=== PATIENT | female | born 1940 | race Caucasian/White ===

== ENCOUNTER → 2022-05-28 | Outpatient (CLI) | payer OTHER ==
[2022-05-28 16:20] LABS: Basophils # (auto) 0.1 10 ^3/uL (0-0.2); Basophils % (auto) 0.8 % (0.0-2.0); Eosinophils # (auto) 0.5 10 ^3/uL (0-0.8); Eosinophils % (auto) 4.9 % (0.0-7.0); Hemoglobin 14.5 g/dL (12.2-16.2); Lymphocytes # (auto) 2.2 10 ^3/uL (0.4-5.4); Lymphocytes % (auto) 20.7 % (10.0-50.0); Mean Corpuscular Hemoglobin 30.8 pg (28.0-32.0); Mean Corpuscular Hgb Conc. 33.9 g/dL (32.0-36.0); Monocytes # (auto) 1.1 10 ^3/uL (0-1.3); Monocytes % (auto) 10.4 % (0.0-12.0); Neutrophils # (auto) 6.8 10 ^3/uL (1.6-8.6); Neutrophils % (auto) 63.2 % (37.0-80.0); Red Blood Cells 4.72 10^6/uL (4.0-5.20); Red Cell Distribution Width 13.4 % (11.8-14.3); White Blood Cell 10.7 10^3/uL (4.4-10.8)
[2022-05-28 16:51] LABS: Albumin 3.5 g/dL (3.4-5.0); BUN/Creatinine Ratio 21.2; Calcium 9.1 mg/dL (8.5-10.1); Potassium 4.4 mmol/L (3.5-5.1); Total Protein 7.5 g/dL (6.4-8.2)
[2022-05-28 16:55] LABS: Bilirubin, Total 0.4 mg/dL (0.2-1.0)
== END | disposition home or self-care (01) ==
LOC: LAB 15:27
PROVIDERS: ATTEND Internal Medicine Hematology & Oncology
DX: H01.131 Eczematous dermatitis of right upper eyelid (principal); I10 Essential (primary) hypertension; R80.9 Proteinuria, unspecified; M47.818 Spondylosis without myelopathy or radiculopathy, sacral and sacrococcygeal region
CPT/HCPCS: 36415; 80053; 80061; 82043; 83036; 84439; 84443; 85025

== ENCOUNTER → 2023-01-07 | Outpatient (CLI) | payer OTHER ==
[2023-01-07 12:06] LABS: Basophils # (auto) 0.1 10 ^3/uL (0-0.2); Basophils % (auto) 0.9 % (0.0-2.0); Eosinophils # (auto) 0.5 10 ^3/uL (0-0.8); Eosinophils % (auto) 5.9 % (0.0-7.0); Lymphocytes # (auto) 1.8 10 ^3/uL (0.4-5.4); Lymphocytes % (auto) 20.9 % (10.0-50.0); Mean Corpuscular Hemoglobin 30.4 pg (28.0-32.0); Mean Corpuscular Hgb Conc. 33.3 g/dL (32.0-36.0); Mean Corpuscular Volume 91.3 fL (80.0-100.0); Monocytes # (auto) 0.8 10 ^3/uL (0-1.3); Monocytes % (auto) 9.3 % (0.0-12.0); Neutrophils # (auto) 5.4 10 ^3/uL (1.6-8.6); Red Cell Distribution Width 13.5 % (11.8-14.3); White Blood Cell 8.6 10^3/uL (4.4-10.8)
[2023-01-07 13:37] LABS: Triglycerides 135 mg/dL (< 150)
[2023-01-07 13:38] LABS: Alanine Aminotransferase 17 U/L (7-40); Albumin 4.3 g/dL (3.2-4.8); Alkaline Phosphatase 78 U/L (46-116); Anion Gap 7 (5-15); Aspartate Aminotransferase 15 U/L (13-40); BUN/Creatinine Ratio 14.3 (10.0-20.0); Bilirubin, Direct 0.1 mg/dL (<0.3); Bilirubin, Total 0.4 mg/dL (0.2-1.0); Blood Urea Nitrogen 14 mg/dL (9-23); Calcium 9.4 mg/dL (8.5-10.1); Carbon Dioxide 29 mmol/L (20-30); Chloride 104 mmol/L (98-107); Cholesterol 136 mg/dL (< 200); Glucose 102 mg/dL (74-106); HDL Cholesterol 59 mg/dL (40-59); LDL Cholesterol 60 mg/dL (< 100); Potassium 4.3 mmol/L (3.5-5.1); Sodium 140 mmol/L (136-145); Total Protein 7.4 g/dL (5.7-8.2)
== END | disposition home or self-care (01) ==
LOC: LAB 11:09
PROVIDERS: ATTEND Internal Medicine Hematology & Oncology
DX: I12.9 Hypertensive chronic kidney disease with stage 1 through stage 4 chronic kidney disease, or unspecified chronic kidney disease (principal); E11.22 Type 2 diabetes mellitus with diabetic chronic kidney disease; N18.31 Chronic kidney disease, stage 3a
CPT/HCPCS: 36415; 80048; 80061; 80076; 83036; 84436; 84439; 84443; 85025

== ENCOUNTER 2023-05-22 09:09 | Emergency (ER) | payer OTHER ==
[~2023-05-22] VITALS: Ht 162.6 cm; Wt 185.0 kg
[2023-05-22 11:16] VITALS: BP 167/107; PULSE 88; RESP 16; TEMP 98.5; O2SAT 96
[2023-05-22] MEDS: ACETAMINOPHEN/CODEINE#3 (300/30mg) TAB PO ONE (12:15)
[2023-05-22 16:15] LABS: Urine Bacteria NONE SEEN /hpf (None Seen); Urine Blood TRACE /uL (Negative); Urine Clarity Clear (Clear); Urine Color Yellow (Yellow); Urine Protein, UAD 3+ (Negative); Urine Specific Gravity 1.016 (1.001-1.035); Urine Urobilinogen Normal (Negative); Urine WBC 2 /hpf (0 - 5)
== END 2023-05-22 18:20 | disposition home or self-care (01) ==
LOC: EDBD 09:09 → ER 09:09
DX: S82.832A Other fracture of upper and lower end of left fibula, initial encounter for closed fracture (principal); I10 Essential (primary) hypertension; Z98.890 Other specified postprocedural states; Z79.899 Other long term (current) drug therapy; W18.39XA Other fall on same level, initial encounter; Y93.89 Activity, other specified; Y92.89 Other specified places as the place of occurrence of the external cause; Y99.8 Other external cause status
CPT/HCPCS: 29515; 73562; 73600; 81001

== ENCOUNTER 2023-05-29 23:21 | Inpatient (IN) | payer OTHER ==
[~2023-05-29] VITALS: Ht 162.6 cm; Wt 83.6 kg
[2023-05-30] VITALS (11 sets, daily range): BP systolic 142–170; BP diastolic 47–85; PULSE 76–83; RESP 16–18; TEMP 98–98.7; O2SAT 82–95
[2023-05-30] MEDS: MORPHINE SULFATE 4 MG/ML SYR/VIAL IV ONE
[2023-05-30 00:26] LABS: Chloride 107 mmol/L (98-107); Potassium 3.9 mmol/L (3.5-5.1); Sodium 139 mmol/L (136-145)
[2023-05-30 00:27] LABS: Anion Gap 7 (5-15); Carbon Dioxide 25 mmol/L (20-30)
[2023-05-30 00:28] LABS: Calcium 9.3 mg/dL (8.7-10.4)
[2023-05-30 00:31] LABS: Basophils # (auto) 0.1 10 ^3/uL (0-0.2); Eosinophils # (auto) 0.5 10 ^3/uL (0-0.8); Eosinophils % (auto) 5.1 % (0.0-7.0); Hemoglobin 13.8 g/dL (12.2-16.2); Lymphocytes # (auto) 1.6 10 ^3/uL (0.4-5.4); Lymphocytes % (auto) 15.7 % (10.0-50.0); Mean Corpuscular Hemoglobin 29.9 pg (28.0-32.0); Mean Corpuscular Hgb Conc. 33.6 g/dL (32.0-36.0); Monocytes # (auto) 1.1 10 ^3/uL (0-1.3); Monocytes % (auto) 11.1 % (0.0-12.0); Neutrophils # (auto) 6.7 10 ^3/uL (1.6-8.6); Neutrophils % (auto) 67.1 % (37.0-80.0); Nucleated Red Blood Cells % 0.1 %; Red Cell Distribution Width 13.4 % (11.8-14.3)
[2023-05-30 00:32] LABS: BUN/Creatinine Ratio 21.1 (10.0-20.0); Blood Urea Nitrogen 20 mg/dL (9-23); Glucose 138 mg/dL (74-106)
[2023-05-30] MEDS ORDERED: ONDANSETRON HCL 4 MG/2 ML VIAL IV PRN (02:30)
[2023-05-30] MEDS ORDERED: ACETAMINOPHEN 325 MG TAB PO PRN (02:30)
[2023-05-30] MEDS ORDERED: MORPHINE SULFATE INJ 2 MG/ml SYRG IV PRN (02:30)
[2023-05-30] MEDS: HYDROcodone-ACET 5/325MG TAB PO PRN (03:07)
[2023-05-30] MEDS ORDERED: TRAZ150T84 PO (06:39)
[2023-05-30] MEDS ORDERED: DOCU-265 PO (06:51)
[2023-05-30] MEDS ORDERED: FLUO0.05 TOP (06:51)
[2023-05-30] MEDS ORDERED: LISI40TA16 PO (06:51)
[2023-05-30] MEDS ORDERED: AMLO1TAB22 PO ×2 (06:51→09:40)
[2023-05-30 08:52] LABS: INR 1.01 (0.9-1.15); Partial Thromboplastin Time 32.2 SEC (24.5-34.5); Prothrombin Time 10.6 sec (9.3-11.8)
[2023-05-30] MEDS: DOCUSATE SOD 100 MG CAP PO SCH ×2 (09:26→21:39)
[2023-05-30] MEDS: LISINOPRIL 20 MG TAB PO SCH (09:27)
[2023-05-30] MEDS: ENOXAPARIN SOD 40 MG/0.4 ML SYRINGE SC SCH (09:29)
[2023-05-30 09:31] LABS: Urine Bacteria NONE SEEN /hpf (None Seen); Urine Blood TRACE /uL (Negative); Urine Clarity Clear (Clear); Urine Protein, UAD 2+ (Negative); Urine Specific Gravity 1.012 (1.001-1.035); Urine Urobilinogen Normal (Negative); Urine WBC 13 /hpf (0 - 5); Urine pH 5.5 (5.0-8.0)
[2023-05-30 09:32] LABS: Urine Color STRAW (Yellow)
[2023-05-30] MEDS ORDERED: OXYB5SOL PO (09:40)
[2023-05-30] MEDS: LACTULOSE 20Gm/30ML SOLN PO ONE (14:26)
[2023-05-30] MEDS: ACETAMINOPHEN/CODEINE#3 (300/30mg) TAB PO ONE ×2 (14:28→21:44)
[2023-05-30] MEDS: ENOXAPARIN SOD 30 MG/0.3 ML SYRINGE SC ONE (21:15)
[2023-05-30] MEDS: DOCUSATE SOD 100 MG CAP PO ONE (21:39)
[2023-05-30] MEDS: PRAVASTATIN SODIUM 20 MG TAB PO SCH (21:44)
[2023-05-30] MEDS: traZODone HCL 50 MG TAB PO ONE (23:00)
[2023-05-31] MEDS: ACETAMINOPHEN/CODEINE#3 (300/30mg) TAB PO PRN (04:59)
[2023-05-31 05:00] VITALS: BP 161/56; PULSE 76; RESP 18; TEMP 98.1; O2SAT 94
[2023-05-31] MEDS ORDERED: hydrALAZINE HCL 20 MG/ML VL IV PRN (06:15)
[2023-05-31 07:15] LABS: Basophils # (auto) 0.1 10 ^3/uL (0-0.2); Basophils % (auto) 0.8 % (0.0-2.0); Eosinophils # (auto) 0.5 10 ^3/uL (0-0.8); Eosinophils % (auto) 5.9 % (0.0-7.0); Hematocrit 41.7 % (36.0-46.0); Hemoglobin 13.9 g/dL (12.2-16.2); Lymphocytes # (auto) 1.3 10 ^3/uL (0.4-5.4); Lymphocytes % (auto) 14.9 % (10.0-50.0); Mean Corpuscular Hemoglobin 29.9 pg (28.0-32.0); Mean Corpuscular Hgb Conc. 33.3 g/dL (32.0-36.0); Mean Corpuscular Volume 89.8 fL (80.0-100.0); Monocytes % (auto) 11.5 % (0.0-12.0); Neutrophils # (auto) 5.9 10 ^3/uL (1.6-8.6); Neutrophils % (auto) 66.9 % (37.0-80.0); Nucleated Red Blood Cells % 0.1 %; Red Blood Cells 4.64 10^6/uL (4.0-5.20); Red Cell Distribution Width 13.5 % (11.8-14.3); White Blood Cell 8.9 10^3/uL (4.4-10.8)
[2023-05-31 07:24] LABS: Anion Gap 7 (5-15); Carbon Dioxide 25 mmol/L (20-30); Chloride 106 mmol/L (98-107); Potassium 3.9 mmol/L (3.5-5.1); Sodium 138 mmol/L (136-145)
[2023-05-31 07:25] LABS: Calcium 9.5 mg/dL (8.7-10.4)
[2023-05-31 07:30] LABS: BUN/Creatinine Ratio 16.3 (10.0-20.0); Blood Urea Nitrogen 15 mg/dL (9-23); Glucose 98 mg/dL (74-106)
[2023-05-31 08:00] VITALS: PULSE 68; O2SAT 95
[2023-05-31 08:54] VITALS: BP 112/58; PULSE 74; RESP 17; TEMP 98.1; O2SAT 95
[2023-05-31 09:10] VITALS: BP 135/73; PULSE 112; RESP 58; TEMP 36.7; O2SAT 95
[2023-05-31] MEDS: amLODIPine BESYLATE 5 MG TAB PO SCH (09:45)
[2023-05-31] MEDS: DOCUSATE SOD 100 MG CAP PO ONE (09:45)
[2023-05-31] MEDS: OXYBUTYNIN CHL 5 MG TAB PO SCH (09:47)
[2023-05-31] MEDS: ENOXAPARIN SOD 40 MG/0.4 ML SYRINGE SC SCH (10:00)
[2023-05-31] MEDS: LISINOPRIL 20 MG TAB PO SCH (10:00)
[2023-05-31] MEDS ORDERED: traZODone HCL 50 MG TAB PO SCH (22:00)
== END 2023-05-31 09:50 | DRG 563 ==
LOC: ER 23:21 → EDBD 23:21 → OVERFLOW 05-30 02:29 → EAST 05-30 06:10
PROVIDERS: ADMIT Internal Medicine; ATTEND Internal Medicine
DX: S82.492A Other fracture of shaft of left fibula, initial encounter for closed fracture (principal); R62.7 Adult failure to thrive; I10 Essential (primary) hypertension; K59.00 Constipation, unspecified; M41.9 Scoliosis, unspecified; E78.5 Hyperlipidemia, unspecified; W18.39XA Other fall on same level, initial encounter; Z96.652 Presence of left artificial knee joint; Z74.01 Bed confinement status; Y93.89 Activity, other specified; Y92.89 Other specified places as the place of occurrence of the external cause; Y99.8 Other external cause status; Z82.3 Family history of stroke; Z68.31 Body mass index [BMI] 31.0-31.9, adult
CPT/HCPCS: 36415; 71045; 73590; 80048; 81001; 82306; 83735; 85025; 85610; 85730; 93005; 97110; 97163; 97530; G0378